=== PATIENT | female | born 1990 | race Hispanic/Latino ===

== ENCOUNTER 2017-10-09 04:05 | Emergency (ER) | payer SELFPAY ==
[2017-10-09] MEDS ORDERED: NA CHLORIDE 0.9% 1,000 ML ONE (04:48)
[2017-10-09 05:29] LABS: Absolute Lymphocytes (CBC) 2.6 K/uL (0.7-4.9); Absolute Monocytes 0.7 K/uL (0.1-1.3); Absolute Neutrophil 8.8 K/uL (1.8-8.0); Basophils % 0.4 % (0-1.3); Eosinophils % 1.1 % (0-4.4); Hematocrit 40.4 % (36.0-45.0); Lymphocytes % 20.9 % (15.3-44.8); MCH 28.9 pg (27.0-35.0); MPV 7.7 fL (7.6-11.3); Monocytes % 5.8 % (3.3-12.3); RBC Red Blood Cell Count 4.81 M/uL (3.86-4.86)
[2017-10-09 05:30] LABS: Urine Blood 1+ (NEG); Urine Glucose NEGATIVE (NEG); Urine Protein NEGATIVE (NEG)
[2017-10-09 05:42] LABS: BUN Blood Urea Nitrogen 10 mg/dL (7-18); Bicarbonate 26 mmol/L (21-32); Glucose Level 84 mg/dL (74-106); Potassium 3.4 mmol/L (3.5-5.1); Sodium Level 142 mmol/L (136-145)
[2017-10-09 05:45] LABS: Alcohol Serum/Plasma 45 mg/dL (<3)
[2017-10-09] MEDS ORDERED: POTASSIUM 25 MEQ EFFERV TAB ONE (06:13)
[2017-10-09 06:14] LABS: Barbiturates NEGATIVE (NEGATIVE); Benzodiazepines NEGATIVE (NEGATIVE); Cocaine NEGATIVE (NEGATIVE); METHAMPHETAM NEGATIVE (NEGATIVE); Methadone NEGATIVE (NEGATIVE); Opiates NEGATIVE (NEGATIVE); Phencyclidine NEGATIVE (NEGATIVE); THC Cannibis NEGATIVE (NEGATIVE)
[2017-10-09] MEDS ORDERED: POTASSIUM CL SA 10 MEQ TAB PO ONE (06:18)
--- NOTE | 2017-10-09 06:30 | ER ---
Nurse's Notes [facility] Name: Herlinda Alvares Age: 27 yrs Sex: Female : 1990 Arrival Date: 10/09/2017 Time: 04:06 Bed 6 Private MD: Diagnosis: Numbness right side tongue and right arm ( Resolved ) Presentation: 10/09 04:08 Presenting complaint: Patient states: that she is having numbness to right side of fc tongue and right arm. 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 Also having some chest pain that does not radiate. Denies any nausea, vomiting or shortness of breath. Transition of care: patient was not received from another setting of care. Onset of symptoms was October 09, 2017 at 03:50. Risk Assessment: Do you want to hurt yourself or someone else? Patient reports no desire to harm self or others. Care prior to arrival: None. 04:08 Method Of Arrival: Ambulatory 04:08 Acuity: EDER 3 04:18 Initial Sepsis Screen: Does the patient meet any 2 criteria? HR > 90 bpm. Yes Does the patient have a suspected source of infection? No. Patient's initial sepsis screen is negative. MANAGER ED: 06:47 LMP N/A - ao Historical: - Allergies: 04:19 No Known Allergies; fc - Home Meds: 04:19 None [Active]; fc - PMHx: 04:19 bells palsy; fc - PSHx: 04:19 ; fc - Immunization history:: Last tetanus immunization: unknown. - Social history:: Smoking status: Patient/guardian denies using tobacco, Patient uses alcohol, occasionally. Patient/guardian denies using street drugs. - Ebola Screening: : Patient negative for fever greater than or equal to 101.5 degrees Fahrenheit, and additional compatible Ebola Virus Disease symptoms Patient denies exposure to infectious person Patient denies travel to an Ebola-affected area in the 21 days before illness onset. Screenin:08 Abuse screen: Denies threats or abuse. Nutritional screening: No deficits noted. fc Tuberculosis screening: No symptoms or risk factors identified. Fall Risk None identified. Assessment: 04:25 General: Appears in no apparent distress. comfortable, Behavior is calm, cooperative, ao appropriate for age. Pain: Complains of pain in chest Pain radiates to right arm Pain currently is 6 out of 10 on a pain scale. Quality of pain is described as pressure, Pain began 3 hours ago. Neuro: Level of Consciousness is awake, alert, obeys commands, Oriented to Moves all extremities. Full function Speech is normal, Facial symmetry appears normal. Cardiovascular: Capillary refill < 3 seconds. Respiratory: Airway is patent Respiratory effort is even, unlabored, Respiratory pattern is regular, symmetrical, Breath sounds are clear. GI: Abdomen is round obese. : No signs and/or symptoms were reported regarding the genitourinary system. EENT: No signs and/or symptoms were reported regarding the EENT system. Derm: Skin is intact, Skin is pink, warm \T\ dry. normal, Skin temperature is warm. Musculoskeletal: Circulation, motion, and sensation intact. Range of motion:. 05:28 Reassessment: Patient appears in no apparent distress at this time. No changes from ao previously documented assessment. Patient and/or family updated on plan of care and expected duration. Pain level reassessed. 06:47 Reassessment: DC instructions given to patient. patient agree with the POC and to ao follow up with PCP. Vital Signs: 04:08 BP 111 / 64; Pulse 103; Resp 20; Temp 98.2(O); Pulse Ox 100% on R/A; Weight 120.2 kg fc (R); Height 5 ft. 4 in. (162.56 cm) (R); Pain 6/10; 05:28 BP 115 / 68; Pulse 80; Resp 22; Pulse Ox 98% on R/A; ao 06:47 BP 112 / 82; Pulse 79; Resp 18; Pulse Ox 98% on R/A; Pain 0/10; ao 04:08 Body Mass Index 45.49 (120.20 kg, 162.56 cm) ED Course: 04:06 Patient arrived in ED. al2 04:06 Adrián Roman MD is Attending Physician. pkl 04:08 Arm band placed on Patient placed in an exam room, on a stretcher. fc 04:08 Patient has correct armband on for positive identification. Placed in gown. Bed in low fc position. Call light in reach. environmental monitoring specialist on. Pulse ox on. NIBP on. 04:15 EKG done, by ED staff, reviewed by Adrián Roman MD. fc 04:16 Triage completed. fc 04:23 Lalit Chun, RN is Primary Nurse. ao 04:[address] via wheelchair. kw1 05:08 CT completed. Patient tolerated procedure well. Patient moved back from CT. kw1 05:09 CT Head Brain wo Cont In Process Unspecified. EDMS 05:20 Inserted saline lock: 20 gauge in right antecubital area, using aseptic technique. ao ,using aseptic technique. Ultrasound Guided IV Blood collected. 05:36 Patient maintains SpO2 saturation greater than 95% on room air. ao 06:46 No provider procedures requiring assistance completed. IV discontinued, intact, ao bleeding controlled, No redness/swelling at site. Pressure dressing applied. Administered Medications: 05:23 Drug: NS 0.9% 1000 ml Route: IV; Rate: 125 ml/hr; Site: right antecubital; ao 06:51 Follow up: IV Status: Completed infusion; IV Intake: 520ml ao 06:17 Not Given (Changed to Pills): K-Lyte Effervescent Tablet 25 mEq PO once; dissolve in 4 ao ounces of water or juice 06:17 Drug: K-Dur 20 mEq Route: PO; ao 06:51 Follow up: Response: No adverse reaction ao Point of Care Testing: Blood Glucose: 04:10 Blood Glucose: 86 mg/dL; fc Ranges: Intake: 06:51 IV: 520ml; Total: 520ml. ao Outcome: 06:29 Discharge ordered by . eun 06:47 Discharged to home ambulatory. ao 06:47 Condition: stable 06:47 Discharge instructions given to patient, Instructed on discharge instructions, follow up and referral plans. Demonstrated understanding of instructions, follow-up care, medications. 06:50 Patient left the ED. ao Signatures: Dispatcher [employer] EDMS Adrián Roman MD MD pkl Chretien, Felicia RN RN Lalit Chun RN RN Cinda Gordillo kw1 Jolynn Pedro2 Corrections: (The following items were deleted from the chart) 04:54 04:[address] via stretcher. kw1 kw1
--- NOTE | 2017-10-09 06:30 | EDPHYS ---
Physician Documentation [facility] Name: Herlinda Alvares Age: 27 yrs Sex: Female : 1990 Arrival Date: 10/09/2017 Time: 04:06 Bed 6 Private MD: ED Physician Adrián Roman HPI: 10/09 04:27 This 27 yrs old Female presents to ER via Ambulatory with complaints of Chest pkl Pain, Slurred Speech, R ARM NUMBNESS. 04:27 The patient or guardian reports chest pain that is located primarily in the substernal pkl area. The pain radiates to the right arm. Associated signs and symptoms: Pertinent positives: numbness right side of tongue. The chest pain is described as tightness. 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 - Social history:: Smoking status: Patient/guardian denies using tobacco, Patient uses alcohol, occasionally. Patient/guardian denies using street drugs. - Ebola Screening: : Patient negative for fever greater than or equal to 101.5 degrees Fahrenheit, and additional compatible Ebola Virus Disease symptoms Patient denies exposure to infectious person Patient denies travel to an Ebola-affected area in the 21 days before illness onset. ROS: 04:27 Eyes: Negative for injury, pain, redness, and discharge. pkl 04:27 ENT: Positive for numbness right side tongue. 04:27 Neck: Negative for stiffness. 04:27 Cardiovascular: Positive for chest pain. 04:27 Respiratory: Negative for acute changes. 04:27 Abdomen/GI: Negative for abdominal pain, nausea, vomiting, and diarrhea. 04:27 Back: Negative for acute changes. 04:27 : Negative for urinary symptoms. 04:27 MS/extremity: Negative for acute changes. 04:27 Skin: Negative for rash. 04:27 Neuro: Negative for altered mental status. Exam: 04:27 Head/Face: Normocephalic, atraumatic. Eyes: Pupils equal round and reactive to light, pkl extra-ocular motions intact. Lids and lashes normal. Conjunctiva and sclera are non-icteric and not injected. Cornea within normal limits. Periorbital areas with no swelling, redness, or edema. ENT: Nares patent. No nasal discharge, no septal abnormalities noted. Tympanic membranes are normal and external auditory canals are clear. Oropharynx with no redness, swelling, or masses, exudates, or evidence of obstruction, uvula midline. Mucous membranes moist. Neck: Trachea midline, no thyromegaly or masses palpated, and no cervical lymphadenopathy. Supple, full range of motion without nuchal rigidity, or vertebral point tenderness. No Meningismus. Chest/axilla: Normal chest wall appearance and motion. Nontender with no deformity. No lesions are appreciated. Cardiovascular: Regular rate and rhythm with a normal S1 and S2. No gallops, murmurs, or rubs. Normal PMI, no JVD. No pulse deficits. Respiratory: Lungs have equal breath sounds bilaterally, clear to auscultation and percussion. No rales, rhonchi or wheezes noted. No increased work of breathing, no retractions or nasal flaring. Abdomen/GI: Soft, non-tender, with normal bowel sounds. No distension or tympany. No guarding or rebound. No evidence of tenderness throughout. Back: No spinal tenderness. No costovertebral tenderness. Full range of motion. Skin: Warm, dry with normal turgor. Normal color with no rashes, no lesions, and no evidence of cellulitis. MS/ Extremity: Pulses equal, no cyanosis. Neurovascular intact. Full, normal range of motion. 04:27 Neuro: Orientation: is normal, Mentation: is normal, Cranial nerves: grossly normal, Cerebellar function: normal finger to nose testing, heel to johnson testing is normal, Motor: is normal, Sensation: numbness, that is mild, of the right side tongue and right arm, Gait: is steady. Vital Signs: 04:08 BP 111 / 64; Pulse 103; Resp 20; Temp 98.2(O); Pulse Ox 100% on R/A; Weight 120.2 kg fc (R); Height 5 ft. 4 in. (162.56 cm) (R); Pain 6/10; 05:28 BP 115 / 68; Pulse 80; Resp 22; Pulse Ox 98% on R/A; ao 06:47 BP 112 / 82; Pulse 79; Resp 18; Pulse Ox 98% on R/A; Pain 0/10; ao 04:08 Body Mass Index 45.49 (120.20 kg, 162.56 cm) fc MDM: 04:06 Patient medically screened. pkl 06:21 Data reviewed: vital signs, nurses notes, lab test result(s), radiologic studies, CT pkl scan. 10/09 04:27 Order name: CBC with Diff; Complete Time: 05:40 pkl 10/09 04:27 Order name: Chem 7; Complete Time: 05:54 pkl 10/09 04:27 Order name: UDS; Complete Time: 06:15 pkl 10/09 04:27 Order name: ETOH Level; Complete Time: 05:54 pkl 10/09 04:36 Order name: Glucose, Ancillary Testing; Complete Time: 04:37 EDMS 10/09 05:13 Order name: Urine Dipstick--Ancillary (enter results) ms 10/09 04:27 Order name: CT Head Brain wo Cont pkl 10/09 05:13 Order name: Urine --Ancillary (enter results) ms 10/09 05:13 Order name: Urine Dipstick-Ancillary; Complete Time: 05:40 EDMS 10/09 05:13 Order name: Urine --Ancillary; Complete Time: 05:40 EDMS Administered Medications: 05:23 Drug: NS 0.9% 1000 ml Route: IV; Rate: 125 ml/hr; Site: right antecubital; ao 06:51 Follow up: IV Status: Completed infusion; IV Intake: 520ml ao 06:17 Not Given (Changed to Pills): K-Lyte Effervescent Tablet 25 mEq PO once; dissolve in 4 ao ounces of water or juice 06:17 Drug: K-Dur 20 mEq Route: PO; ao 06:51 Follow up: Response: No adverse reaction ao Point of Care Testing: Blood Glucose: 04:10 Blood Glucose: 86 mg/dL; fc Ranges: Critical Glucose Levels:Adult <50 mg/dl or >400 mg/dl <40 mg/dl or >180 mg/dl Disposition: 10/09/17 06:29 Discharged to Home. Impression: Numbness right side tongue and right arm ( Resolved ). - Condition is Stable. - Medication Reconciliation Form, Thank You Letter, Antibiotic Education, Prescription Opioid Use form. - Follow up: Private Physician; When: 2 - 3 days; Reason: Re-evaluation by your physician. - Problem is new. - Symptoms are resolved. Signatures: Dispatcher [employer] Adrián Stein MD MD pkl Chretien, Felicia RN RN Lalit Berg RN RN ao Corrections: (The following items were deleted from the chart) 06:50 06:29 10/09/2017 06:29 Discharged to Home. Impression: Numbness right side tongue and ao right arm ( Resolved ). Condition is Stable. Forms are Medication Reconciliation Form, Thank You Letter, Antibiotic Education, Prescription Opioid Use. Follow up: Private Physician; When: 2 - 3 days; Reason: Re-evaluation by your physician. Problem is new. Symptoms are resolved. pkl
--- NOTE | 2017-10-09 07:16 | EKG ---
Test Date: 2017-10-09 Test Time: 04:15:09 Sustainability Officer: GEORGE MEASUREMENT RESULTS: Intervals: Rate: 97 ME: 142 QRSD: 100 QT: 378 QTc: 480 [place]: P: 41 ME: 142 QRS: 68 T: 21 INTERPRETIVE STATEMENTS: Normal sinus rhythm Prolonged QT Abnormal ECG Compared to ECG 01/14/2017 21:59:54 Prolonged QT interval now present Sinus arrhythmia no longer present Electronically Signed On 10-09-17 07:15:40 CDT by Everette Chino
--- NOTE | 2017-10-09 08:15 | RAD REPORT ---
EXAM DESCRIPTION: CT - Head Brain Wo Cont - 10/09/2017 5:09 am CLINICAL HISTORY: numbness right side tongue and right extremity CVA/TIA COMPARISON: No comparisons TECHNIQUE: All CT scans are performed using dose optimization technique as appropriate and may inclu de automated exposure control or mA/KV adjustment according to patient size. FINDINGS: No intracranial hemorrhage, hydrocephalus or extra-axial fluid collection.No areas of brai n edema or evidence of midline shift. The paranasal sinuses and mastoids are clear. The calvarium is intact. IMPRESSION: No acute intracranial abnormality.
== END 2017-10-09 06:50 | disposition home or self-care (01) ==
LOC: ER 04:05
DX: R20.0 Anesthesia of skin (principal)
CPT/HCPCS: 36415; 70450; 80048; 80307; 80320; 81003; 81025; 82962; 85025; 93005; 96360; 99285; J7030

== ENCOUNTER 2017-11-21 13:41 | Emergency (ER) | payer SELFPAY ==
--- NOTE | 2017-11-21 14:38 | ER ---
Nurse's Notes [facility] Name: Herlinda Alvares Age: 27 yrs Sex: Female : 1990 Arrival Date: 11/21/2017 Time: 13:42 Bed 12 Private MD: None, None Diagnosis: Streptococcal pharyngitis Presentation: 11/21 13:56 Presenting complaint: Patient states: Reports sore throat for the past 2 days. Denies aj1 fever. Denies N/V. Denies SOB. Transition of care: patient was not received from another setting of care. Onset of symptoms was November 19, 2017. Risk Assessment: Do you want to hurt yourself or someone else? Patient reports no desire to harm self or others. Initial Sepsis Screen: Does the patient meet any 2 criteria? Systolic BP < 90 mmHg. Does the patient have a suspected source of infection? Yes: Other: patchy exudate on tonsils. Care prior to arrival: None. 13:56 Method Of Arrival: Ambulatory aj1 13:56 Acuity: EDER 4 aj1 Triage Assessment: 13:59 General: Appears in no apparent distress. uncomfortable, Behavior is calm, cooperative, aj1 appropriate for age. Pain: Complains of pain in left aspect of posterior pharynx and right aspect of posterior pharynx Pain currently is 10 out of 10 on a pain scale. Neuro: Level of Consciousness is awake, alert, obeys commands. 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 - Social history:: Smoking status: Patient/guardian denies using tobacco. - Ebola Screening: : Patient denies travel to an Ebola-affected area in the 21 days before illness onset. Screenin:00 Abuse screen: Denies threats or abuse. Denies injuries from another. Nutritional aj1 screening: No deficits noted. Tuberculosis screening: No symptoms or risk factors identified. Assessment: 14:00 General: Appears in no apparent distress. uncomfortable, Behavior is calm, cooperative, aj1 appropriate for age. Pain: Complains of pain in right aspect of posterior pharynx and left aspect of posterior pharynx Pain does not radiate. Pain currently is 10 out of 10 on a pain scale. Quality of pain is described as sharp, Aggravated by swallowing. Neuro: Level of Consciousness is awake, alert, obeys commands. Cardiovascular: Patient's skin is warm and dry. Respiratory: Airway is patent Respiratory effort is even, unlabored, Respiratory pattern is regular, symmetrical, Breath sounds are clear bilaterally. GI: No signs and/or symptoms were reported involving the gastrointestinal system. Patient currently denies diarrhea, nausea, vomiting. : No signs and/or symptoms were reported regarding the genitourinary system. EENT: Throat is reddened has patchy exudate has enlarged tonsils bilaterally. Derm: No signs and/or symptoms reported regarding the dermatologic system. Skin is pink, warm \T\ dry. normal. Musculoskeletal: No signs and/or symptoms reported regarding the musculoskeletal system. Circulation, motion, and sensation intact. Vital Signs: 13:59 BP 164 / 92; Pulse 92; Resp 20; Temp 97.0(TE); Pulse Ox 97% on R/A; Weight 127.01 kg aj1 (R); Height 5 ft. 7 in. (170.18 cm) (R); Pain 10/10; 13:59 Body Mass Index 43.85 (127.01 kg, 170.18 cm) aj1 ED Course: 13:42 Patient arrived in ED. sb2 13:42 None, None is Private Physician. sb2 13:59 Triage completed. aj1 13:59 Arm band placed on Patient placed in an exam room. aj1 14:00 Patient has correct armband on for positive identification. Bed in low position. Call aj1 light in reach. Side rails up X 1. 14:00 No provider procedures requiring assistance completed. aj1 14:02 Mikala Rivas FNP-C is [facility]. kb 14:02 Herman Simon MD is Attending Physician. kb 14:14 Tianna Billy RN is Primary Nurse. ss 15:07 Patient did not have IV access during this emergency room visit. ss Administered Medications: 15:07 Drug: Augmentin 875 mg Route: PO; ss 15:07 Follow up: Response: No adverse reaction; Medication administered at discharge. ss 15:07 Drug: predniSONE 40 mg Route: PO; ss 15:07 Follow up: Response: Medication administered at discharge. Outcome: 14:37 Discharge ordered by . citlali 15:07 Discharged to home ambulatory. 15:07 Condition: good 15:07 Discharge instructions given to patient, Instructed on discharge instructions, follow up and referral plans. medication usage, Demonstrated understanding of instructions, follow-up care, medications, Prescriptions given X 2. 15:08 Patient left the ED. Signatures: Mikala Rivas, VASCULAR ULTRASOUND TECHNOLOGIST-C VASCULAR ULTRASOUND TECHNOLOGIST-Lindsay Brooks RN RN aj1 Tianna Billy RN RN ss Alondra Tapia sb2
--- NOTE | 2017-11-21 14:38 | EDPHYS ---
Physician Documentation [facility] Name: Herlinda Alvares Age: 27 yrs Sex: Female : 1990 Arrival Date: 11/21/2017 Time: 13:42 Bed 12 Private MD: None, None ED Physician Herman Simon HPI: 11/21 14:26 This 27 yrs old Female presents to ER via Ambulatory with complaints of kb Swollen Glands. 14:26 The patient presents with sore throat. The patient describes throat pain as constant. kb Onset: The symptoms/episode began/occurred 2 day(s) ago. Severity of symptoms: At their worst the symptoms were moderate, in the emergency department the symptoms are unchanged. Modifying factors: The symptoms are alleviated by nothing, the symptoms are aggravated by swallowing, Patient's oral intake status: good. Associated signs and symptoms: Pertinent positives: Sore throat Pertinent negatives chest pain, chills, cough, diarrhea, dysphagia, earache, fever, flu-like symptoms, headache, nausea, rhinorrhea, shortness of breath, vomiting. The patient has not experienced similar symptoms in the past. The patient has not recently seen a physician. 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 - Social history:: Smoking status: Patient/guardian denies using tobacco. - Ebola Screening: : Patient denies travel to an Ebola-affected area in the 21 days before illness onset. ROS: 14:24 Constitutional: Negative for fever, chills, and weight loss, Cardiovascular: Negative kb for chest pain, palpitations, and edema, Respiratory: Negative for shortness of breath, cough, wheezing, and pleuritic chest pain, Abdomen/GI: Negative for abdominal pain, nausea, vomiting, diarrhea, and constipation, : Negative for injury, bleeding, discharge, and swelling, MS/Extremity: Negative for injury and deformity, Skin: Negative for injury, rash, and discoloration, Neuro: Negative for headache, weakness, numbness, tingling, and seizure. 14:24 ENT: Positive for sore throat. Exam: 14:24 Constitutional: This is a well developed, well nourished patient who is awake, alert, kb and in no acute distress. Head/Face: Normocephalic, atraumatic. Chest/axilla: Normal chest wall appearance and motion. Nontender with no deformity. No lesions are appreciated. Cardiovascular: Regular rate and rhythm with a normal S1 and S2. No gallops, murmurs, or rubs. Normal PMI, no JVD. No pulse deficits. Respiratory: Lungs have equal breath sounds bilaterally, clear to auscultation and percussion. No rales, rhonchi or wheezes noted. No increased work of breathing, no retractions or nasal flaring. Abdomen/GI: Soft, non-tender, with normal bowel sounds. No distension or tympany. No guarding or rebound. No evidence of tenderness throughout. Skin: Warm, dry with normal turgor. Normal color with no rashes, no lesions, and no evidence of cellulitis. MS/ Extremity: Pulses equal, no cyanosis. Neurovascular intact. Full, normal range of motion. Neuro: Awake and alert, GCS 15, oriented to person, place, time, and situation. Cranial nerves II-XII grossly intact. Motor strength 5/5 in all extremities. Sensory grossly intact. Cerebellar exam normal. Normal gait. 14:24 ENT: Posterior pharynx: Airway: normal, no evidence of obstruction, Tonsils: bilaterally enlarged, with erythema, with exudate, Uvula: normal, midline, swelling, that is moderate, erythema, that is marked, exudate, that is moderate. Vital Signs: 13:59 BP 164 / 92; Pulse 92; Resp 20; Temp 97.0(TE); Pulse Ox 97% on R/A; Weight 127.01 kg aj1 (R); Height 5 ft. 7 in. (170.18 cm) (R); Pain 10/10; 13:59 Body Mass Index 43.85 (127.01 kg, 170.18 cm) aj1 MDM: 14:03 Patient medically screened. kb 14:24 Data reviewed: vital signs, nurses notes. Data interpreted: Pulse oximetry: on room air kb is 97 %. Interpretation: normal. Counseling: I had a detailed discussion with the patient and/or guardian regarding: the historical points, exam findings, and any diagnostic results supporting the discharge/admit diagnosis, lab results, the need for outpatient follow up, a family practitioner, to return to the emergency department if symptoms worsen or persist or if there are any questions or concerns that arise at home. 11/21 14:02 Order name: Strep; Complete Time: 14:37 aj1 11/21 14:34 Order name: Throat Culture EDMS Administered Medications: 15:07 Drug: Augmentin 875 mg Route: PO; ss 15:07 Follow up: Response: No adverse reaction; Medication administered at discharge. ss 15:07 Drug: predniSONE 40 mg Route: PO; ss 15:07 Follow up: Response: Medication administered at discharge. ss Disposition: 16:45 Co-signature as Attending Physician, Herman Simon MD. rn Disposition: 11/21/17 14:37 Discharged to Home. Impression: Streptococcal pharyngitis. - Condition is Stable. - Discharge Instructions: Strep Throat, [id number]. - Prescriptions for Augmentin 875- 125 mg Oral Tablet - take 1 tablet by ORAL route every 12 hours for 10 days; 20 tablet. Prednisone 20 mg Oral Tablet - take 1 tablet by ORAL route once daily for 5 days; 5 tablet. - Medication Reconciliation Form, Thank You Letter, Antibiotic Education, Prescription Opioid Use form. - Follow up: Emergency Department; When: As needed; Reason: Worsening of condition. Follow up: Private Physician; When: 2 - 3 days; Reason: Recheck today's complaints, Continuance of care, Re-evaluation by your physician. Signatures: Dispatcher [facility] Mikala Rivas, MARLEEN BLANCOP-Lindsay Brooks RN RN aj1 Herman Simon MD MD rn Smirch, Shelby, RN RN ss Corrections: (The following items were deleted from the chart) 15:08 14:37 11/21/2017 14:37 Discharged to Home. Impression: Streptococcal pharyngitis. ss Condition is Stable. Discharge Instructions: Strep Throat, [id number]. Prescriptions for Augmentin 875-125 mg Oral Tablet - take 1 tablet by ORAL route every 12 hours for 10 days; 20 tablet, Prednisone 20 mg Oral Tablet - take 1 tablet by ORAL route once daily for 5 days; 5 tablet. and Forms are Medication Reconciliation Form, Thank You Letter, Antibiotic Education, Prescription Opioid Use. Follow up: Emergency Department; When: As needed; Reason: Worsening of condition. Follow up: Private Physician; When: 2 - 3 days; Reason: Recheck today's complaints, Continuance of care, Re-evaluation by your physician. kb
[2017-11-21] MEDS ORDERED: predniSONE 20 MG TAB ONE (15:04)
[2017-11-21] MEDS ORDERED: AMOX/K CLAV 875 MG TAB ONE (15:04)
== END 2017-11-21 15:08 | disposition home or self-care (01) ==
LOC: ER 13:41
DX: J02.0 Streptococcal pharyngitis (principal)
CPT/HCPCS: 87070; 87081; 99283; J7512

== ENCOUNTER 2023-11-04 04:56 | Emergency (ER) | payer SELFPAY ==
[2023-11-04] MEDS ORDERED: ASPIRIN 81 MG CHEWABLE TABLET ONE (05:23)
[2023-11-04] MEDS ORDERED: NA CHLORIDE 0.9% 1,000 ML ONE (05:23)
[2023-11-04 05:29] LABS: Absolute Basophils 0.1 K/uL (0-0.5); Absolute Eosinophils 0.2 K/uL (0-0.5); Absolute Lymphocytes (CBC) 2.8 K/uL (0.7-4.9); Absolute Monocytes 0.8 K/uL (0.1-1.3); Basophils % 0.7 % (0-1.3); Eosinophils % 1.5 % (0-4.4); Hematocrit 41.9 % (36.0-45.0); Hemoglobin 14.1 g/dL (12.0-15.0); Lymphocytes % 23.3 % (15.3-44.8); MCH 27.8 pg (27.0-35.0); MCHC 33.7 g/dL (32.0-36.0); MCV 82.5 fL (80-100); MPV 7.4 fL (7.6-11.3); Monocytes % 7.1 % (3.3-12.3); Neutrophils % 67.4 % (41.7-73.7); Platelets 377 thou/uL (152-406); RBC Red Blood Cell Count 5.08 M/uL (3.86-4.86); Red Cell Distribution Width 14.5 % (12.1-15.2)
[2023-11-04 05:32] LABS: D-Dimer 0.345 FEUug/mL (0-0.500); Protime INR 1.17
[2023-11-04 05:48] LABS: Albumin 3.5 g/dL (3.4-5.0); Albumin/Globulin Ratio 0.8 (1.1-1.8); Anion Gap 12.3 mEq/L (5.0-15.0); Bilirubin Direct 0.2 mg/dL (0-0.2); Bilirubin Indirect, Calculated 0.7 mg/dL (0.2-0.8); Bilirubin Total 0.9 mg/dL (0.2-1.0); Globulin 4.5 g/dL (2.3-3.5); Potassium 3.3 mEq/L (3.5-5.1); Troponin High Sensitivity 4.9 pg/mL (<58.9)
--- NOTE | 2023-11-04 06:35 | ER ---
Nurse's Notes [facility] Name: Herlinda Alvares Age: 33 yrs Sex: Female : 1990 Arrival Date: 11/04/2023 Time: 04:56 Bed 5 Private MD: Diagnosis: Chest pain, unspecified;Obesity, unspecified Presentation: 11/03 05:03 Acuity: EDER 2 ha1 05:03 Chief complaint: Patient states: Chest pain and bilateral pain on the arms. pain ha1 started three hours ago. Coronavirus screen: Vaccine status: Patient reports being unvaccinated. Ebola Screen: No symptoms or risks identified at this time. Initial Sepsis Screen: Does the patient meet any 2 criteria? No. Patient's initial sepsis screen is negative. Does the patient have a suspected source of infection? No. Patient's initial sepsis screen is negative. Risk Assessment: Do you want to hurt yourself or someone else? Patient reports no desire to harm self or others. Onset of symptoms was November 04, 2023. 05:03 Method Of Arrival: Wheelchair ha1 Triage Assessment: 05:03 General: Appears uncomfortable, Behavior is calm, cooperative. Pain: Complains of pain ha1 in chest, right arm and left arm Pain does not radiate. Pain currently is 10 out of 10 on a pain scale. Quality of pain is described as heavy, pressure, Pain began suddenly, 2-3 days ago. Neuro: Level of Consciousness is awake, alert, obeys commands, Oriented to person, place, time, situation. Cardiovascular: Reports chest pain, Heart tones S1 S2 present Capillary refill < 3 seconds Patient's skin is warm and dry. Rhythm is sinus rhythm. Respiratory: Airway is patent Respiratory effort is even, unlabored, Respiratory pattern is regular, symmetrical. GI: No signs and/or symptoms were reported involving the gastrointestinal system. Abdomen is round non-distended, obese. : No signs and/or symptoms were reported regarding the genitourinary system. Musculoskeletal: Circulation, motion, and sensation intact. Range of motion: intact in all extremities. 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 - Infectious Disease History:: Denies. - Social history:: Smoking status: Patient reports the use of cigarette tobacco products. - Family history:: not pertinent. Screenin:03 [facility] ED Fall Risk Assessment (Adult) History of falling in the last 3 months, ha1 including since admission No falls in past 3 months (0 pts) Confusion or Disorientation No (0 pts) Intoxicated or Sedated No (0 pts) Impaired Gait No (0 pts) Mobility Assist Device Used No (0 pt) Altered Elimination No (0 pt) Score/Fall Risk Level 0 - 2 = Low Risk Oriented to surroundings, Maintained a safe environment, Educated pt \T\ family on fall prevention, incl call for assistance when getting out of bed, Provided non-skid footwear. Abuse screen: Denies threats or abuse. Denies injuries from another. Nutritional screening: No deficits noted. Tuberculosis screening: No symptoms or risk factors identified. Assessment: 05:03 Reassessment: see triage assessment. 1 06:00 Reassessment: Patient and/or family updated on plan of care and expected duration. Pain ha1 level reassessed. Patient is alert, oriented x 3, equal unlabored respirations, skin warm/dry/pink. 06:53 Reassessment: Patient and/or family updated on plan of care and expected duration. Pain ha1 level reassessed. Patient is alert, oriented x 3, equal unlabored respirations, skin warm/dry/pink. Patient denies pain at this time. Patient states feeling better. Patient states symptoms have improved. Vital Signs: 05:03 BP 144 / 72; Pulse 97; Resp 17 S; Temp 97(T); Pulse Ox 98% on R/A; Weight 142.88 kg ha1 (M); Height 5 ft. 5 in. ; 06:00 BP 127 / 74; Pulse 87; Resp 19 S; Pulse Ox 97% on R/A; ha1 06:53 BP 130 / 76; Pulse 87; Resp 17 S; Pulse Ox 98% on R/A; ha1 05:03 Body Mass Index 52.42 (142.88 kg, 165.1 cm) 1 ED Course: 05:02 Patient arrived in ED. 2 05:03 Patient has correct armband on for positive identification. Placed in gown. Bed in low ha1 position. Call light in reach. Side rails up X 1. Adult w/ patient. 05:03 Client placed on continuous cardiac and pulse oximetry monitoring. NIBP monitoring ha1 applied. access coordinator on. Door closed. Noise minimized. Warm blanket given. Pillow given. 05:03 Arm band placed on right wrist. ha1 05:05 Patient maintains SpO2 saturation greater than 95% on room air. ha1 05:07 Angelo Whitfield MD is Attending Physician. [facility] 05:10 Inserted saline lock: 20 gauge in right antecubital area, using aseptic technique. ha1 Blood collected. Flushed with 10 mL NS. 05:14 Sabina Cervantes, RN is Primary Nurse. ha1 05:14 Basic Metabolic Panel Sent. ha1 05:14 CBC with Diff Sent. ha1 05:14 D-Dimer Sent. ha1 05:14 LFT's Sent. ha1 05:15 Magnesium Sent. ha1 05:15 NT PRO-BNP Sent. ha1 05:15 PT-INR Sent. ha1 05:15 Troponin HS Sent. ha1 05:19 Triage completed. ha1 05:24 XRAY Chest (1 view) In Process Unspecified. EDMS 06:54 No provider procedures requiring assistance completed. IV discontinued, intact, ha1 bleeding controlled, No redness/swelling at site. Pressure dressing applied. 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 ha1 Administered Medications: 05:29 Drug: Aspirin PO Chewable Tablet 324 mg PO once; 81 mg tablets x 4 Route: PO; ha1 06:00 Follow up: Response: No adverse reaction; Marked relief of symptoms 1 05:29 Drug: NS 0.9% IV 1000 ml IV at 1 bolus Per protocol; 1000 mL bolus Route: IV; Rate: 1 ha1 bolus; Site: right antecubital; 06:53 Follow up: Response: No adverse reaction; IV Status: Completed infusion; IV Intake: ha1 1000ml 06:40 Drug: Potassium PO Effervescent Tablet 25 mEq PO once; dissolve in 4 ounces of water or ha1 juice Route: PO; 06:52 Follow up: Response: No adverse reaction ha1 Medication: 06:23 VIS not applicable for this client. ha1 Intake: 06:53 IV: 1000ml; Total: 1000ml. ha1 Outcome: 06:34 Discharge ordered by . ricardo 06:54 Discharged to home ambulatory, with family, ha1 06:54 Condition: stable 06:54 Discharge instructions given to patient, family, Instructed on discharge instructions, follow up and referral plans. medication usage, Demonstrated understanding of instructions, follow-up care, medications, Prescriptions given X 2, 06:55 Patient left the ED. ha1 Signatures: Dispatcher [employer] EDMS Angelo Whitfield MD MD cha Ayala, Heidy, RN RN 1 Marva Mejia 2
--- NOTE | 2023-11-04 06:35 | EDPHYS ---
Physician Documentation [facility] Name: Herlinda Alvares Age: 33 yrs Sex: Female : 1990 Arrival Date: 11/04/2023 Time: 04:56 Bed 5 Private MD: ED Physician Angelo Whitfield HPI: 11/03 06:24 This 33 yrs old Female presents to ER via Wheelchair with complaints of Chest ricardo Pain. 06:24 The patient or guardian reports chest pain that is located primarily in the substernal ricardo area. The pain does not radiate. Associated signs and symptoms: The patient has no apparent associated signs or symptoms. The chest pain is described as aching. Duration: The patient or guardian reports multiple episodes, with no pattern. Modifying factors: The symptoms are alleviated by nothing. the symptoms are aggravated by nothing. Severity of pain: At its worst the pain was mild in the emergency department the pain is unchanged. The patient has experienced similar episodes in the past, a few times. 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 - Infectious Disease History:: Denies. - Social history:: Smoking status: Patient reports the use of cigarette tobacco products. - Family history:: not pertinent. ROS: 06:24 Constitutional: Negative for fever, chills, and weight loss, Eyes: Negative for injury, ricardo pain, redness, and discharge, ENT: Negative for injury, pain, and discharge, Neck: Negative for injury, pain, and swelling, Respiratory: Negative for shortness of breath, cough, wheezing, and pleuritic chest pain, Abdomen/GI: Negative for abdominal pain, nausea, vomiting, diarrhea, and constipation, Back: Negative for injury and pain, : Negative for injury, bleeding, discharge, and swelling, MS/Extremity: Negative for injury and deformity, Skin: Negative for injury, rash, and discoloration, Neuro: Negative for headache, weakness, numbness, tingling, and seizure, Psych: Negative for depression, anxiety, suicide ideation, homicidal ideation, and hallucinations, Allergy/Immunology: Negative for hives, rash, and allergies, Endocrine: Negative for neck swelling, polydipsia, polyuria, polyphagia, and marked weight changes, Hematologic/Lymphatic: Negative for swollen nodes, abnormal bleeding, and unusual bruising, 06:24 Cardiovascular: Positive for chest pain, of the chest, Exam: 06:24 Constitutional: This is a well developed, well nourished patient who is awake, alert, ricardo and in no acute distress. Head/Face: Normocephalic, atraumatic. Eyes: Pupils equal round and reactive to light, extra-ocular motions intact. Lids and lashes normal. Conjunctiva and sclera are non-icteric and not injected. Cornea within normal limits. Periorbital areas with no swelling, redness, or edema. ENT: Nares patent. No nasal discharge, no septal abnormalities noted. Tympanic membranes are normal and external auditory canals are clear. Oropharynx with no redness, swelling, or masses, exudates, or evidence of obstruction, uvula midline. Mucous membranes moist. Neck: Trachea midline, no thyromegaly or masses palpated, and no cervical lymphadenopathy. Supple, full range of motion without nuchal rigidity, or vertebral point tenderness. No Meningismus. Cardiovascular: Regular rate and rhythm with a normal S1 and S2. No gallops, murmurs, or rubs. Normal PMI, no JVD. No pulse deficits. Respiratory: Lungs have equal breath sounds bilaterally, clear to auscultation and percussion. No rales, rhonchi or wheezes noted. No increased work of breathing, no retractions or nasal flaring. Abdomen/GI: Soft, non-tender, with normal bowel sounds. No distension or tympany. No guarding or rebound. No evidence of tenderness throughout. Back: No spinal tenderness. No costovertebral tenderness. Full range of motion. Skin: Warm, dry with normal turgor. Normal color with no rashes, no lesions, and no evidence of cellulitis. MS/ Extremity: Pulses equal, no cyanosis. Neurovascular intact. Full, normal range of motion. Neuro: Awake and alert, GCS 15, oriented to person, place, time, and situation. Cranial nerves II-XII grossly intact. Motor strength 5/5 in all extremities. Sensory grossly intact. Cerebellar exam normal. Normal gait. Psych: Awake, alert, with orientation to person, place and time. Behavior, mood, and affect are within normal limits. 06:24 Chest/axilla: Inspection: no acute changes, Palpation: tenderness, that is mild, of the anterior aspect of right upper chest and anterior aspect of left upper chest, Axilla: are normal, Breasts: are normal, Lymph nodes: lymphadenopathy is not appreciated, 06:24 Musculoskeletal/extremity: DVT Exam: No signs of deep vein thrombosis. no pain, no swelling, no tenderness, negative Homans' sign noted on exam, no appreciated bluish discoloration, no erythema, no increased warmth, Vital Signs: 05:03 BP 144 / 72; Pulse 97; Resp 17 S; Temp 97(T); Pulse Ox 98% on R/A; Weight 142.88 kg ha1 (M); Height 5 ft. 5 in. ; 06:00 BP 127 / 74; Pulse 87; Resp 19 S; Pulse Ox 97% on R/A; ha1 06:53 BP 130 / 76; Pulse 87; Resp 17 S; Pulse Ox 98% on R/A; ha1 05:03 Body Mass Index 52.42 (142.88 kg, 165.1 cm) ha1 MDM: 05:07 Patient medically screened. ricardo 06:32 Differential diagnosis: abnormal EKG, acute myocardial infarction, acute pericarditis, ricardo anxiety, chest wall pain, cholecystitis, Cholelithiasis costochondritis, esophagitis, pancreatitis, peptic ulcer disease, pericarditis, pleurisy, pneumonia, pulmonary embolus, stable angina, thoracic aortic disection, unstable angina. HEART Score: History: Slightly Suspicious (0), ECG: Normal (0), Age: < or = 45 years (0), Risk Factors: 1 or 2 risk factors (1), [+ Family HX] [Obesity] Troponin: < or = 1 x Normal Limit (0). THEO Risk Score: 1 - Recent [<24hrs] Severe Angina, TOTAL SCORE = 1. Data reviewed: vital signs, nurses notes, lab test result(s), EKG, radiologic studies, plain films. Consideration of Admission/Observation Escalation of care including admission/observation considered. I considered the following discharge prescriptions or medication management in the emergency department Medications were administered in the Emergency Department. See MAR. Independent interpretation of the following test(s) in the Emergency Department EKG: See my EKG interpretation above X-Ray: My interpretation is cxr neg. 11/03 05:08 Order name: Basic Metabolic Panel; Complete Time: 06:12 [facility] 11/03 05:08 Order name: CBC with Diff; Complete Time: 06:12 [facility] 11/03 05:08 Order name: D-Dimer; Complete Time: 06:12 [facility] 11/03 05:08 Order name: LFT's; Complete Time: 06:12 [facility] 11/03 05:08 Order name: Magnesium; Complete Time: 06:12 [facility] 11/03 05:08 Order name: NT PRO-BNP; Complete Time: 06:12 [facility] 11/03 05:08 Order name: PT-INR; Complete Time: 06:12 [facility] 11/03 05:08 Order name: Troponin HS; Complete Time: 06:12 [facility] 11/03 05:08 Order name: Lipase; Complete Time: 06:12 [facility] 11/03 05:08 Order name: Urinalysis w/ reflexes [facility] 11/03 05:08 Order name: PREGU [facility] 11/03 05:08 Order name: UDS [facility] 11/03 05:08 Order name: XRAY Chest (1 view) [facility] 11/03 05:08 Order name: EKG; Complete Time: 05:09 [facility] 11/03 05:08 Order name: Cardiac monitoring; Complete Time: 05:14 [facility] 11/03 05:08 Order name: EKG - Nurse/Tech; Complete Time: 05:14 [facility] 11/03 05:08 Order name: IV Saline Lock; Complete Time: 05:14 [facility] 11/03 05:08 Order name: Labs collected and sent; Complete Time: 05:14 [facility] 11/03 05:08 Order name: O2 Per Protocol; Complete Time: 05:14 [facility] 11/03 05:08 Order name: O2 Sat Monitoring; Complete Time: 05:14 [facility] Administered Medications: 05:29 Drug: Aspirin PO Chewable Tablet 324 mg PO once; 81 mg tablets x 4 Route: PO; ha1 06:00 Follow up: Response: No adverse reaction; Marked relief of symptoms ha1 05:29 Drug: NS 0.9% IV 1000 ml IV at 1 bolus Per protocol; 1000 mL bolus Route: IV; Rate: 1 ha1 bolus; Site: right antecubital; 06:53 Follow up: Response: No adverse reaction; IV Status: Completed infusion; IV Intake: ha1 1000ml 06:40 Drug: Potassium PO Effervescent Tablet 25 mEq PO once; dissolve in 4 ounces of water or ha1 juice Route: PO; 06:52 Follow up: Response: No adverse reaction ha1 Disposition Summary: 11/04/23 06:34 Discharge Ordered Notes: Location: Home ricardo Problem: new ricardo Symptoms: have improved ricardo Condition: Stable ricardo Diagnosis - Chest pain, unspecified ricardo - Obesity, unspecified ricardo Followup: ricardo - With: Private Physician - When: 2 - 3 days - Reason: Recheck today's complaints, Continuance of care, Re-evaluation by your physician Discharge Instructions: - Discharge Summary Sheet ricardo - Nonspecific Chest Pain, Adult ricardo - Chest Wall Pain ricardo - Obesity, Adult ricardo - Chest Wall Pain, [id number] ricardo - Nonspecific Chest Pain, Adult, [id number] ricardo - Aspirin and Your Heart ricardo Forms: - Medication Reconciliation Form ricardo - Antibiotic Education ricardo - Prescription Opioid Use ricardo - Patient Portal Instructions ricardo - Leadership Thank You Letter [facility] Prescriptions: - Ibuprofen 600 mg Oral Tablet - take 1 tablet ORAL route every 6 hours As needed take with food; 30 tablet; ricardo Refills: 0, Product Selection Permitted - Pepcid 20 mg Oral tablet - take 1 tablet ORAL route every 12 hours for 21 days; 42 tablet; Refills: 0, [facility] Product Selection Permitted Signatures: Dispatcher [employer] EDAngelo Young MD MD cha Ayala, Heidy, RN RN ha1 Corrections: (The following items were deleted from the chart) 05:09 05:09 BASIC METABOLIC PANEL+C.LAB.BRZ ordered. EDMS EDMS 05:09 05:09 CBC+H.LAB.BRZ ordered. EDMS EDMS 05:09 05:09 D-DIMER+COAG.LAB.BRZ ordered. EDMS EDMS 05:09 05:09 HEPATIC FUNCTION+C.LAB.BRZ ordered. EDMS EDMS 05:09 05:09 MAGNESIUM+C.LAB.BRZ ordered. EDMS EDMS 05:09 05:09 PROBNP+C.LAB.BRZ ordered. EDMS EDMS 05:09 05:09 PROTIME (+INR)+COAG.LAB.BRZ ordered. EDMS EDMS 05:09 05:09 Troponin High Sensitivity+C.LAB.BRZ ordered. EDMS EDMS 05:09 05:09 LIPASE+C.LAB.BRZ ordered. EDMS EDMS 05:09 05:09 Urinalysis+U.LAB.BRZ ordered. EDMS EDMS 05:09 05:09 Test, Urine+UC.LAB.BRZ ordered. EDMS EDMS 05:09 05:09 URINE DRUG SCREEN+UC.LAB.BRZ ordered. EDMS EDMS
[2023-11-04] MEDS ORDERED: POTASSIUM 25 MEQ EFFERV TAB ONE (06:45)
[2023-11-04 06:55] LABS: Specific Gravity 1.023 (1.005-1.030)
[2023-11-04 06:57] LABS: Specific Gravity 1.023 (1.005-1.030); Urine Bacteria <20 /HPF (<20); Urine Bilirubin NEGATIVE (Negative); Urine Blood 2+ (Negative); Urine Clarity Extremely Turbid (Clear); Urine Color Yellow (Yellow); Urine Culture Reflex Order REFLEXED; Urine Glucose NEGATIVE (Negative); Urine Ketones NEGATIVE (Negative); Urine Microscopic Reflex YN ORDER UMIC; Urine Mucus 4+ /HPF (None Seen); Urine Nitrite NEGATIVE (Negative); Urine Protein 1+ (Negative); Urine Urobilinogen Normal (Normal); Urine WBC 20-50 /HPF (<5); Urine pH 6.5 (5.0-7.0)
[2023-11-04 07:05] LABS: Barbiturates NEGATIVE (NEGATIVE); Benzodiazepines NEGATIVE (NEGATIVE); Cocaine NEGATIVE (NEGATIVE); METHAMPHETAM NEGATIVE (NEGATIVE); Methadone NEGATIVE (NEGATIVE); Opiates NEGATIVE (NEGATIVE); Phencyclidine NEGATIVE (NEGATIVE); THC Cannibis NEGATIVE (NEGATIVE)
[2023-11-04 07:10] VITALS: TEMP 97
[2023-11-04 07:21] VITALS: BP 130/76; O2SAT 98
--- NOTE | 2023-11-04 10:17 | RAD REPORT ---
EXAM DESCRIPTION: RAD - Chest Single View - 11/04/2023 5:22 am CLINICAL HISTORY: The patient is 33 years old and is Female; Chest Pain. TECHNIQUE: Single view of the chest. COMPARISON: No relevant prior studies available. FINDINGS: Lungs: No pulmonary vascular congestion or consolidation. Pleural space: Unremarkable. No pneumothorax. Heart: Unremarkable. No cardiomegaly. Mediastinum: Unremarkable. Bones/joints: No acute fracture. Upper abdomen: No free air in the visualized upper abdomen. IMPRESSION: No acute cardiopulmonary process identified. Electronically signed by: Sandra Rowell MD 11/04/2023 05:49 AM CDT RP ND Due to temporary technical issues with the PACS/Fluency reporting system, reports are being signed by the in house radiologist without review as a courtesy to ensure prompt reporting. The interpreting r adiologist is fully responsible for the content of the report.
--- NOTE | 2023-11-05 13:32 | EKG ---
Test Date: 2023-11-04 Test Time: 05:07:37 Die Holder: SUNDAR MEASUREMENT RESULTS: Intervals: Rate: 92 DE: 152 QRSD: 98 QT: 410 QTc: 507 [place]: P: 40 DE: 152 QRS: 73 T: 36 INTERPRETIVE STATEMENTS: Normal sinus rhythm Prolonged QT Abnormal ECG Compared to ECG 10/09/2017 04:15:09 No significant changes Electronically Signed On 11-05-23 13:28:35 CDT by Sam Jackson
== END 2023-11-04 06:55 | disposition home or self-care (01) ==
LOC: ER 04:56
DX: R07.9 Chest pain, unspecified (principal); E66.9 Obesity, unspecified; Z68.43 Body mass index [BMI] 50.0-59.9, adult
CPT/HCPCS: 36415; 71045; 80048; 80076; 80307; 81001; 81025; 83690; 83735; 83880; 84484; 85025; 85379; 85610; 87077; 87086; 87088; 87186; 93005; 96360; 99285; J7030